=== PATIENT | female | born 1935 | race Caucasian/White ===

== ENCOUNTER → 2016-07-30 | Outpatient (CLI) | payer MEDICARE, MEDICAID ==
[~2016-07-30] MED LIST: AMLODIPINE10 M2 PO; APAP PO; ASPIRIN ADULT L81 M2 PO; ASPIRIN MICROT325 MG PO; BENADRYL ALLERG25 MG PO; CELEBREX 200MG200 MG PO; COLACE GENERIC100 MG PO; DILANTIN 100MG100 MG PO; DILANTIN100 MG PO; DULCOLAX 5MG TAB5 MG PO; HCTZ/LISINOPRIL1 TA2 PO; HYDROCHLOROTH12.5 M1 PO; LIPITOR40 MG PO; LISINOPRIL/HCTZ1 TA3 PO; LISINOPRIL/HYDR1 TAB PO; MULTIVITAMIN1 TA2 PO; Mobic7.5 MG PO; OMEPRAZOLE D/R20 MG PO; PERCOCET 5/3251 EACH PO; TRAMADOL PO; TRAMADOL50 M1 PO; TYLENOL EXTRA500 M1 PO; XANAX 0.25MG0.25 MG PO; ZEBETA10 MG PO
[2016-07-30 10:58] LABS: LYMPH # 1.5 K/mm3 (0.7-4.5); LYMPH % 32.1 % (10-50.0)
[2016-07-30 11:05] LABS: HEMOGLOBIN 11.6 g/dL (12.2-16.2)
[2016-07-30 14:55] LABS: BUN 23 mg/dL (7-18)
[2016-07-30 14:57] LABS: GFR (ESTIMATED) 53 ML/MIN (59-)
== END ==
LOC: LAB 10:46
PROVIDERS: Family Medicine
DX: E78.5 Hyperlipidemia, unspecified (principal); Z79.899 Other long term (current) drug therapy; Z51.81 Encounter for therapeutic drug level monitoring

== ENCOUNTER → 2016-11-20 | Outpatient (CLI) | payer MEDICARE, MEDICAID | LOC: CARL-LAB 08:46 | DX: G40.909 Epilepsy, unspecified, not intractable, without status epilepticus (principal) ==

== ENCOUNTER → 2016-12-17 | Outpatient (CLI) | payer MEDICARE, MEDICAID | LOC: CARL-LAB 11:46 | DX: G40.909 Epilepsy, unspecified, not intractable, without status epilepticus (principal) ==

== ENCOUNTER → 2017-01-14 | Outpatient (CLI) | payer MEDICARE, MEDICAID ==
[2017-01-14 13:54] LABS: BUN 24 mg/dL (7-18)
[2017-01-14 14:07] LABS: GFR (ESTIMATED) 48 ML/MIN (59-)
== END ==
LOC: CARL-LAB 10:12
PROVIDERS: Nurse Practitioner Family
DX: G40.909 Epilepsy, unspecified, not intractable, without status epilepticus (principal)